=== PATIENT | female | born 1945 | race Caucasian/White ===

== ENCOUNTER 2016-09-21 09:00 | Observation (INO) ==
--- NOTE | 2016-09-21 09:13 | Emergency Department Note ---
Disposition Clinical Impression: COPD exacerbation Disposition: Admitted As Inpatient Condition: Fair Reasons to Return/Additional Instructions: Return to the ED for any new or worsening symptoms. Return to the ED if you have worsening shortness of breath, develop any chest pain, fevers, nausea, vomiting, diarrhea. Take prednisone daily as directed. Follow-up with saw filer and primary care doctor in one to 2 days, call for next available appointment. Referrals: NO,PCP [Non-Partnered Physician] - Forms: ED Satisfaction Letter Time of Disposition: 12:43 SOB HPI - General Chief Complaint: ED Upper Respiratory Infection Stated Complaint: Cough / Congestion / Dexter Time Seen by Provider: 09/21/16 09:12 Source: patient, family Limitations: no limitations Nursing Notes Reviewed: Yes Vital Signs Reviewed: Yes - History of Present Illness Patient is a 71-year-old female with past medical history of COPD, hypothyroidism. She presents today due to shortness of breath. Patient states that she began having cold symptoms about 9 days ago, and then she started having shortness of breath. She has also been having a productive cough that is near baseline for her, white sputum. She called her saw filer, Dr. Osborne, who called in a prescription for Levaquin for 7 days and prednisone to take twice a day. She is unsure of what strength prednisone this was but thinks that it was 20 mg twice a day. She states that she is finished both of these medications, just finished Levaquin today, she had some improvement with these medications but states that she is now worsening again. She denies any chest pain, nausea, vomiting, fevers, diarrhea, abdominal pain. No recent leg swelling, surgeries, not on any estrogen. Current home medications for COPD are Advair, Singulair, and albuterol nebulizer which she reports only using twice daily. - Related Data Home Medications Medication Instructions Recorded Confirmed Albuterol Sulfate [Proair Hfa] 2 puff IH Q4H PRN 09/21/16 09/21/16 Calcium Carb, Citrate/Vit D3 1 tab PO DAILY 09/21/16 09/21/16 [Calcium + D3 ER Tablet] Cholecalciferol (D-3) [Vitamin D] 2,000 unit PO DAILY 09/21/16 09/21/16 Fluticasone Propionate Nasal 50 mcg NS DAILY 09/21/16 09/21/16 [Flonase] Fluticasone/Salmeterol [Advair 1 puff IH BID 09/21/16 09/21/16 250-50 Diskus] Ipratropium/Albuterol Neb [Duoneb] 3 ml IH Q6HR 09/21/16 09/21/16 Levothyroxine [Synthroid] 150 mcg PO DAILY 09/21/16 09/21/16 Montelukast [Singulair] 10 mg PO DAILY 09/21/16 09/21/16 Topiramate [Topamax] 25 mg PO DAILY 09/21/16 09/21/16 Allergies Allergy/AdvReac Type Severity Reaction Status Date / Time Erythromycin Base Allergy Gastrointestinal Verified 09/21/16 12:15 Upset Penicillins Allergy Swelling Verified 09/21/16 12:15 of Lip/Tongue/Throat Constitutional: Denies: fever Eyes: Denies: eye pain ENT ED: Denies: ear pain Cardiovascular: Denies: chest pain Respiratory: Reports: cough, dyspnea, wheezes Gastrointestinal: Denies: abdominal pain, nausea, vomiting, diarrhea, constipation Endocrine: Denies: fatigue Past Medical History - Past Medical History Attestation: Yes The following information was validated with the patient. Medical history: Reports: asthma, COPD, migraine, thyroid disease Psychiatric history: Reports: no psych history PLASTER MACHINE TENDER history: Reports: no PLASTER MACHINE TENDER history - Social History Smoking Status: Never smoker Smokeless Tobacco Status: No Alcohol use: Reports: occasionally Drug use: Reports: none Physical Exam - General Limitations: no limitations General appearance: alert, in no apparent distress - Head Head exam: atraumatic, normocephalic, normal inspection - Eye Eye exam: Present: normal appearance, PERRL, EOMI - ENT ENT exam: normal exam, normal oropharynx, mucous membranes moist - Chest Chest inspection: Present: normal inspection, symmetric chest wall rise - Respiratory Respiratory exam: Present: wheezes (End expiratory wheezes throughout) - Cardiovascular Cardiovascular exam: Present: normal rhythm, tachycardia, normal heart sounds - Abdominal Exam Abdominal exam: Present: soft, Non-Tender. Absent: tenderness, distention, guarding, rebound, rigidity - Extremities Exam Extremities exam: Present: normal inspection, full ROM. Absent: tenderness, pedal edema - Neurological Exam Neurological exam: Present: alert, oriented X3 - Psychiatric Psychiatric exam: Present: normal affect, normal mood - Skin Skin exam: Present: warm, dry, intact, normal color Course Course Narrative: Patient was mildly tachycardic at a heart rate of 100. Oxygen was 95% on room air. The rest of the vitals were within normal limits on my exam. No acute distress. Patient was able to communicate in full sentences without any difficulty, No accessory muscle use. She did have an expiratory wheezes throughout. This is very likely COPD exacerbation. We will obtain chest x-ray, EKG was normal sinus rhythm with no acute ST changes. We will give the patient duo nebs 3 and prednisone 60 mg. The patient improves, we will send home with 60 mg prednisone daily for 5 days, continue taking her home medications Advair, Singulair, albuterol nebulizer every 4-6 hours as needed. We will have her follow up with saw filer in one to 2 days, call for next available appointment. Wells PE positive for only one factor - HR >100, however, history and physical consistent with COPD exacerbation. No concern for PE at this time. 11:15 patient reassess. She is still having wheezing, shortness of breath. Patient was ambulated around the department and oxygen saturation was 87% with just a short walk. She is still symptomatically short of breath. We will admit the patient for hypoxia, COPD exacerbation. Patient was agreeable with this plan. Vital Signs Temperature 99.5 F 09/21/16 09:05 Pulse Rate 101 09/21/16 09:05 Respiratory Rate 18 09/21/16 09:05 Blood Pressure 146/81 09/21/16 09:05 O2 Sat by Pulse Oximetry 95 09/21/16 09:05 Temperature 99.5 F 09/21/16 09:05 Pulse Rate 107 09/21/16 12:10 Respiratory Rate 18 09/21/16 12:10 Blood Pressure 136/104 09/21/16 12:10 O2 Sat by Pulse Oximetry 95 09/21/16 12:10 Oxygen Delivery Oxygen Delivery Room Air Shortness of Breath/Dyspnea - MDM Narrative Medical decision making narrative: Patient was mildly tachycardic at a heart rate of 100. Oxygen was 95% on room air. The rest of the vitals were within normal limits on my exam. No acute distress. Patient was able to communicate in full sentences without any difficulty, No accessory muscle use. She did have an expiratory wheezes throughout. This is very likely COPD exacerbation. We will obtain chest x-ray, EKG was normal sinus rhythm with no acute ST changes. We will give the patient duo nebs 3 and prednisone 60 mg. The patient improves, we will send home with 60 mg prednisone daily for 5 days, continue taking her home medications Advair, Singulair, albuterol nebulizer every 4-6 hours as needed. We will have her follow up with saw filer in one to 2 days, call for next available appointment. Wells PE positive for only one factor - HR >100, however, history and physical consistent with COPD exacerbation. No concern for PE at this time. 11:15 patient reassess. She is still having wheezing, shortness of breath. Patient was ambulated around the department and oxygen saturation was 87% with just a short walk. She is still symptomatically short of breath. We will admit the patient for hypoxia, COPD exacerbation. Patient was agreeable with this plan. - Medical Records Medical records reviewed: Yes I reviewed the patient's medical records. - Lab Data Lab results reviewed: Yes I reviewed the patient's lab results. Result diagrams: 09/21/16 09:28 09/21/16 09:28 Lab Results 09/21/16 09/21/16 Range/Units 09:28 09:28 WBC 6.1 (4.3-11.1) K/mcL RBC 4.92 (3.82-4.97) M/mcL Hgb 15.4 (11.5-15.4) g/dL Hct 47.5 H (35.3-44.9) % MCV 96.5 (83.0-100.0) fL MCH 31.3 (28.0-33.3) pg MCHC 32.4 (31.6-35.5) g/dL RDW 13.1 (11.5-14.5) % Plt Count 347 (140-400) K/mcL MPV 9.3 L (9.4-12.4) fL Immature Gran % 0.7 (0-4) % Seg Neutrophils % 57.2 % Lymphocytes % 24.1 % Monocytes % 16.7 % Eosinophils % 0.5 % Basophils % 0.8 % Neutrophils # 3.5 (1.6-8.9) K/mcL Lymphocytes # 1.5 (0.6-4.6) K/mcL Monocytes # 1.0 (0.0-1.3) K/mcL Eosinophils # 0.0 (0.0-0.6) K/mcL Basophils # 0.1 (0.0-0.2) K/mcL Sodium 138 (136-145) mEq/L Potassium 3.7 (3.5-4.5) mEq/L Chloride 103 (98-109) mEq/L Carbon Dioxide 24 (19-29) mEq/L BUN 15 (7-20) mg/dL Creatinine 0.85 (0.57-1.11) mg/dL Est GFR ( Amer) > 60 (> 60) Est GFR (Non-Af Amer) > 60 (> 60) BUN/Creatinine Ratio 18 (6-26) Glucose 88 (70-99) mg/dL Calculated Osmolality 286 (280-300) Calcium 8.9 (8.6-10.8) mg/dL - Radiology Data Radiology results reviewed: Yes I reviewed the patient's radiology results. - EKG Data EKG attestation: Yes I reviewed and interpreted this EKG. EKG results narrative: 09/21/2016@09:17. Normal sinus rhythm. Rate 96. [place] interval 155. QRS 89. QTc 372. Left axis deviation. No acute ST elevation or depression. S.B.A.Velma. - S.B.AMirian Situation: Demographics, MOA Background: Presenting Complaint, Relevant PMH, Meds, & Allergies Assessment: Vital Signs, Course and respsone to treatment, Exam Concerns, Patient/Family Expectation, Pertinant Lab Results, Outstanding Labs Recommendation: Barrier(s) to disposition, Recommendation based on pending studies, treatments, or consults S.B.A.R. Report Given to: Dr. Yordy Lopez Repor Time: 12:43 Attestation Statement - Attestation Attestation: I examined this patient and my medical decision-making was reviewed with the SLIP COVER SEWER/PA/Advanced Practice Nurse/Resident Physician. I agree with the documented findings, disposition and treatment plan as described except to the extent set forth below. Face to face time provided Patient with a known history of COPD presents to the emergency department with cough, chest congestion, wheezing with only partial relief from her home inhaler. She is able to speak in full sentences on exam. Patient seen and evaluated in conjunction with the resident physician
[2016-09-21] MEDS ORDERED: predniSONE 20 MG TABLET PO ONE (09:32)
[2016-09-21] MEDS ORDERED: Ipratropium/Albuterol Neb 3 ML IH ONE (09:32)
[2016-09-21 11:14] LABS: Basophils # 0.1 K/mcL (0.0-0.2); Basophils % 0.8 %; Eosinophils % 0.5 %; Hematocrit 47.5 % (35.3-44.9); Hemoglobin 15.4 g/dL (11.5-15.4); Immature Granulocytes % 0.7 % (0-4); Lymphocytes # 1.5 K/mcL (0.6-4.6); Lymphocytes % 24.1 %; Mean Corpuscular HGB Conc 32.4 g/dL (31.6-35.5); Mean Corpuscular Hemoglobin 31.3 pg (28.0-33.3); Mean Corpuscular Volume 96.5 fL (83.0-100.0); Mean Platelet Volume 9.3 fL (9.4-12.4); Monocytes % 16.7 %; Neutrophils # 3.5 K/mcL (1.6-8.9); Platelet Count 347 K/mcL (140-400); Red Blood Count 4.92 M/mcL (3.82-4.97); Red Cell Distribution Width 13.1 % (11.5-14.5); Segmented Neutrophils % 57.2 %
[2016-09-21 11:16] LABS: BUN/Creatinine Ratio 18 (6-26); Blood Urea Nitrogen 15 mg/dL (7-20); Calcium 8.9 mg/dL (8.6-10.8); Carbon Dioxide 24 mEq/L (19-29); Chloride 103 mEq/L (98-109); Glucose 88 mg/dL (70-99); Osmolality,Calculated 286 (280-300); Potassium 3.7 mEq/L (3.5-4.5); Sodium 138 mEq/L (136-145); eGFR For African Americans > 60 (> 60); eGFR For Non-African Americans > 60 (> 60)
[2016-09-21] MEDS ORDERED: Albuterol 2.5 MG/3 ML NEBULIZER IH PRN (15:05)
[2016-09-21] MEDS: Ipratropium/Albuterol Neb 3 ML IH SCH ×3 (16:33→23:56)
--- NOTE | 2016-09-21 16:40 | Internal Med History&Physical ---
Date of Encounter: 09/21/16 Time of Encounter: 16:37 Assessment and Plan (1) Hypoxia Current visit: Yes Status: Acute Secondary to COPD exacerbation. She desaturated easily with ambulation to 87% on room air. We will provide supplemental oxygen by nasal cannula to maintain saturation above 92%. We will check home oxygen qualification prior to discharge. (2) Hypothyroidism Current visit: Yes Status: Acute Continue levothyroxine. Qualifiers: Hypothyroidism type: unspecified Qualified Code(s): E03.9 - Hypothyroidism , unspecified (3) COPD exacerbation Current visit: Yes Status: Acute Patient has increasing sputum production and shortness of breath, she desaturates with minimal ambulation which is not her norm. We will treat her with IV steroids, inhaled albuterol and Atrovent. Restart Levaquin 500 mg for a total of 7 more days. We will plan to transition to oral steroids and discharge her when a taper starting at 60 mg daily and slowly tapering it down to 10 mg daily. (4) DVT prophylaxis Current visit: Yes Status: Acute Encourage early ambulation. She does not require pharmacological prophylaxis per risk assessment score. Internal Medicine - H&P: HPI Chief complaint: Chest congestion Admitted From: Emergency Dept Plans for Post Hospital Care: Home History of present illness: Ms. Cramer is a 71 year old female with past medical history of COPD and hypothyroidism, not on home oxygen who presented to the hospital for cough and congestion. She has had a productive cough with shortness of breath and congestion for the last 9 days for which she received outpatient treatment from her superintendent maintenance airports with prednisone and 5 days of Levaquin. She just finished a course of prednisone and started becoming more short of breath with increasing cough and congestion and wheezing. Her symptoms were severe today and she decided to come to the hospital. She denies associated chest pain fevers chills nausea vomiting diarrhea. In the emergency department she was given prednisone and triple nebulized bronchodilators which improved her symptoms however she remained short of breath and her oxygenation saturation dropped to 87% with minimal ambulation. She was referred for admission. Review of systems: Pertinent positives as above, additionally positive for vision loss and chronic back pain otherwise a 10 point review of systems was performed and found to be negative. Family history positive for coronary artery disease in the patient's father. Past Med Surg Social Fam HX - Past Medical History Medical history: arthritis, asthma, COPD, migraine, thyroid disease Psychiatric history: no psych history - Social History Smoking Status: Former smoker Smokeless Tobacco Status: No Alcohol use: occasionally Drug use: none - Family History Mother History Unknown: Yes Living Status: Father Living Status: Age at : 55 Hx Family Cardiac Disorders: Yes Internal Medicine - H&P: Meds Albuterol Sulfate [Proair Hfa] 2 puff IH Q4H PRN 09/21/16 [History] Calcium Carb, Citrate/Vit D3 [Calcium + D3 ER Tablet] 1 tab PO DAILY 09/21/16 [ History] Cholecalciferol (D-3) [Vitamin D] 2,000 unit PO DAILY 09/21/16 [History] Fluticasone Propionate Nasal [Flonase] 50 mcg NS DAILY 09/21/16 [History] Fluticasone/Salmeterol [Advair 250-50 Diskus] 1 puff IH BID 09/21/16 [History] Ipratropium/Albuterol Neb [Duoneb] 3 ml IH Q6HR 09/21/16 [History] Levothyroxine [Synthroid] 150 mcg PO DAILY 09/21/16 [History] Montelukast [Singulair] 10 mg PO DAILY 09/21/16 [History] Topiramate [Topamax] 25 mg PO DAILY 09/21/16 [History] Allergies Erythromycin Base Allergy (Verified 09/21/16 12:15) Gastrointestinal Upset patient states was hospitalized for pancreas problems after taking this medication. Penicillins Allergy (Verified 09/21/16 12:15) Swelling of Lip/Tongue/Throat All Systems PM: A 10-system review of systems was performed and is negative for pertinent findings except as documented above in the HPI. - Constitutional Vitals: Temp Pulse Resp BP Pulse Ox 97.4 F L 93 16 121/71 93 L 09/21/16 14:40 09/21/16 14:40 09/21/16 14:40 09/21/16 14:40 09/21/16 14:40 General appearance: Present: A&O X 3 - Eye Eye exam: Present: PERRL, conjuntiva pink, sclera anicteric Pupils: Present: PERRL - Respiratory Respiratory exam: Present: decreased breath sounds, wheezes (Scattered expiratory wheezes). Absent: accessory muscle use, rales, rhonchi - Cardiovascular Cardiovascular exam: Present: RRR, +S1, +S2. Absent: diastolic murmur, gallop, rubs, systolic murmur - GI/Abdominal GI/Abdominal exam: Present: normal bowel sounds, soft, no peritoneal signs. Absent: distended, tenderness - Extremities Exam Extremities exam: Present: warm, radial pulses palpable and symetrical. Absent : calf tenderness, cyanotic, pedal edema - Neurological Exam Neurological exam: Present: oriented X3, no focal deficits. Absent: pronater drift, facial droop, speech deficit - Skin Skin exam: Present: dry, intact Internal Med - H&P Results - Labs CBC & Chem 7: 09/21/16 09:28 09/21/16 09:28
[2016-09-21] MEDS: levoFLOXacin 500 MG TABLET PO SCH (17:27)
[2016-09-21] MEDS ORDERED: MethylPREDNISolone 40 MG/ML VIAL IVP SCH (18:00)
[2016-09-21] MEDS: Budesonide/Formoterol 80/4.5 MDI IH SCH (20:07)
--- NOTE | 2016-09-21 21:05 | Electrocardiograph Report ---
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
[2016-09-21] MEDS: MethylPREDNISolone 40 MG/ML VIAL IVP SCH (23:46)
[2016-09-22] MEDS: Ipratropium/Albuterol Neb 3 ML IH SCH ×6 (04:33→23:16)
[2016-09-22 05:26] LABS: Basophils % 0.4 %; Hematocrit 47.9 % (35.3-44.9); Hemoglobin 15.6 g/dL (11.5-15.4); Immature Granulocytes % 0.9 % (0-4); Lymphocytes # 0.7 K/mcL (0.6-4.6); Lymphocytes % 11.7 %; Mean Corpuscular HGB Conc 32.6 g/dL (31.6-35.5); Mean Corpuscular Hemoglobin 31.1 pg (28.0-33.3); Mean Corpuscular Volume 95.4 fL (83.0-100.0); Mean Platelet Volume 9.2 fL (9.4-12.4); Monocytes # 0.3 K/mcL (0.0-1.3); Neutrophils # 4.5 K/mcL (1.6-8.9); Platelet Count 346 K/mcL (140-400); Red Blood Count 5.02 M/mcL (3.82-4.97); Red Cell Distribution Width 12.8 % (11.5-14.5)
[2016-09-22 05:39] LABS: BUN/Creatinine Ratio 19 (6-26); Blood Urea Nitrogen 17 mg/dL (7-20); Calcium 9.4 mg/dL (8.6-10.8); Carbon Dioxide 23 mEq/L (19-29); Chloride 105 mEq/L (98-109); Glucose 127 mg/dL (70-99); Magnesium 2.2 mg/dL (1.6-2.6); Osmolality,Calculated 293 (280-300); Potassium 3.9 mEq/L (3.5-4.5); Sodium 140 mEq/L (136-145); eGFR For African Americans > 60 (> 60); eGFR For Non-African Americans > 60 (> 60)
[2016-09-22] MEDS: Budesonide/Formoterol 80/4.5 MDI IH SCH ×2 (07:39→20:04)
[2016-09-22] MEDS: Fluticasone Propionate Nasal 50 MCG/SPRAY BOTTLE NS SCH (10:06)
[2016-09-22] MEDS: Topiramate 25 MG TABLET PO SCH (10:06)
[2016-09-22] MEDS: MethylPREDNISolone 40 MG/ML VIAL IVP SCH ×2 (10:06→16:30)
[2016-09-22] MEDS: levoFLOXacin 500 MG TABLET PO SCH (10:06)
--- NOTE | 2016-09-22 16:47 | Internal Med Progress Note ---
Date of Encounter: 09/21/16 Time of Encounter: 09:30 - Assessment and plan (1) COPD exacerbation Current Visit: Yes Status: Acute Assessment and plan: Patient failed outpatient therapy with Levaquin for 7 days and prednisone twice a day for 5 days. She presented to the emergency room last night with worsening condition and baseline cough. She states that she could not get a good breath. She is requiring oxygen at this time. Her lungs are diminished throughout posteriorly, the expiratory wheezing heard anteriorly. DuoNeb Albuterol treatments. IV Solu-Medrol Levaquin 500 mg by mouth 7 days We will start to transition to oral steroids. (2) Hypoxia Current Visit: Yes Status: Acute Assessment and plan: Patient is requiring oxygen to maintain her sats above 92%. she desats easily on room air down to 87 or 88%. She does not have O2 at home. Continuous pulse ox plan as above (3) Hypothyroidism Current Visit: Yes Status: Chronic Assessment and plan: Chronic. continue home medication. Qualifiers: Hypothyroidism type: unspecified Qualified Code(s): E03.9 - Hypothyroidism , unspecified (4) DVT prophylaxis Current Visit: Yes Status: Acute Assessment and plan: Patient and is unable to ambulate due to shortness of breath and hypoxia, will use antiembolic stockings. - Time Spent With Patient less than 15 minutes - Subjective Interval history: Patient reports vomiting or 10 days of URI symptoms and shortness of breath. She normally has a productive cough with white sputum which remains at baseline. She denies fevers but says that she has been warm. Her internet architect , Dr. Cristobal, gave her Levaquin for 7 days and prednisone twice a day for 5 days. She did not get better. She denies increased use of her inhalers. She denies chest pain nausea vomiting diarrhea or abdominal pain. She does not have peripheral edema. She does not wear oxygen at home. She reports unable to ambulate in her room without her sats dropping to 88% on room air. The nurses attempt to ambulate her again this afternoon and she was tachycardic at 125 and again sats dropped to 88%. - Constitutional Vitals: Temp Pulse Resp BP Pulse Ox 98.1 F 100 16 124/75 93 L 09/22/16 15:23 09/22/16 15:23 09/22/16 15:28 09/22/16 15:23 09/22/16 15:28 General appearance: Present: cooperative, A&O X 3, pleasant, no acute distress, answers questions appropriately - Head Head exam: Present: normal inspection - Eye Eye exam: Present: normal appearance, conjuntiva pink - ENT ENT exam: Present: mucous membranes moist, normal exam - Neck Neck exam general surgery: Present: normal inspection. Absent: lymphadenopathy , tenderness - Respiratory Respiratory exam: Present: decreased breath sounds, wheezes. Absent: rales, respiratory distress, rhonchi, stridor, tachypnea - Cardiovascular Cardiovascular exam: Present: RRR, +S1, +S2, tachycardia - Neurological Exam Neurological exam: Present: alert, oriented X3, strengths equal and symetr throughout Internal Medicine: Result - Labs CBC & Chem 7: 09/22/16 04:30 09/22/16 04:30 Labs: Short CBC 09/22/16 Range/Units 04:30 WBC 5.5 (4.3-11.1) K/mcL Hgb 15.6 H (11.5-15.4) g/dL Hct 47.9 H (35.3-44.9) % Plt Count 346 (140-400) K/mcL Neutrophils # 4.5 (1.6-8.9) K/mcL BMP 09/22/16 04:30 Sodium 140 Potassium 3.9 Chloride 105 Carbon Dioxide 23 BUN 17 Creatinine 0.89 Glucose 127 H Calcium 9.4 Consult Discharge Plan - Plan Referrals: Deyvi Branham Jr, MD [Primary Care Provider] -
[2016-09-23] MEDS: Ipratropium/Albuterol Neb 3 ML IH SCH ×4 (04:00→15:45)
[2016-09-23 06:01] LABS: Basophils % 0.1 %; Hematocrit 42.4 % (35.3-44.9); Hemoglobin 14.2 g/dL (11.5-15.4); Immature Granulocytes % 0.6 % (0-4); Lymphocytes # 1.5 K/mcL (0.6-4.6); Lymphocytes % 18.4 %; Mean Corpuscular HGB Conc 33.5 g/dL (31.6-35.5); Mean Corpuscular Hemoglobin 31.9 pg (28.0-33.3); Mean Corpuscular Volume 95.3 fL (83.0-100.0); Mean Platelet Volume 9.4 fL (9.4-12.4); Monocytes # 0.8 K/mcL (0.0-1.3); Neutrophils # 5.6 K/mcL (1.6-8.9); Platelet Count 329 K/mcL (140-400); Red Blood Count 4.45 M/mcL (3.82-4.97); Red Cell Distribution Width 12.7 % (11.5-14.5); Segmented Neutrophils % 70.9 %
[2016-09-23 06:16] LABS: BUN/Creatinine Ratio 19 (6-26); Blood Urea Nitrogen 16 mg/dL (7-20); Carbon Dioxide 21 mEq/L (19-29); Chloride 106 mEq/L (98-109); Glucose 104 mg/dL (70-99); Osmolality,Calculated 285 (280-300); Potassium 3.8 mEq/L (3.5-4.5); Sodium 137 mEq/L (136-145); eGFR For African Americans > 60 (> 60); eGFR For Non-African Americans > 60 (> 60)
[2016-09-23] MEDS: Budesonide/Formoterol 80/4.5 MDI IH SCH (07:53)
[2016-09-23] MEDS ORDERED: predniSONE 20 MG TABLET PO SCH (09:00)
[2016-09-23] MEDS: Topiramate 25 MG TABLET PO SCH (09:48)
[2016-09-23] MEDS: levoFLOXacin 500 MG TABLET PO SCH (09:48)
[2016-09-23] MEDS: Fluticasone Propionate Nasal 50 MCG/SPRAY BOTTLE NS SCH (09:48)
[2016-09-23 15:12] VITALS: BP 137/78
--- NOTE | 2016-09-23 16:47 | Discharge Summary ---
Date of Encounter: 09/23/16 Time of Encounter: 10:40 - Discharge Diagnosis (1) COPD exacerbation Priority: Primary Status: Chronic Comments: Patient has drastically improved from yesterday. She is no longer requiring supplemental oxygen to maintain her saturation. Her lungs are diminished with faint expiratory wheezing in bilateral bases. She has no leukocytosis, and no fever. Today she reports a dry cough. Patient did a second 6 minute walk today with a 1 minute nora her sat was at the lowest 89%. On room air for the remainder of the time she stayed between 90 and 92%. Chest x-ray was negative for any acute cardiopulmonary process. She says that she feels better today and is breathing easier and is ready to go home. I will send her home on a prednisone taper. (2) Hypoxia Priority: Secondary Status: Acute Comments: Patient is no longer requiring supplemental oxygen to maintain her room air saturation. Patient did a 6 minute walk again today in maintain sats between 89 -92%. At the 2 minute and 6 minute nora she maintained her sats on room air between 90 and 92. The cyst does not qualify for home oxygen. Had initially been a concern yesterday. Plan as above (3) Hypothyroidism Priority: Secondary Status: Chronic Comments: Chronic. Continue home medication. Qualifiers: Hypothyroidism type: unspecified Qualified Code(s): E03.9 - Hypothyroidism , unspecified (4) DVT prophylaxis Priority: Secondary Status: Acute Comments: Patient has been ambulating in the hallway as well as in her room. She did not require pharmacological prophylaxis. - Discharge Medications Prescriptions: Levofloxacin [Levaquin] 500 mg PO DAILY #5 tablet PredniSONE 10 mg PO DAILY #74 tablet Home Medications: Albuterol Sulfate [Proair Hfa] 2 puff IH Q4H PRN 09/21/16 [History] Calcium Carb, Citrate/Vit D3 [Calcium + D3 ER Tablet] 1 tab PO DAILY 09/21/16 [ History] Cholecalciferol (D-3) [Vitamin D] 2,000 unit PO DAILY 09/21/16 [History] Fluticasone Propionate Nasal [Flonase] 50 mcg NS DAILY 09/21/16 [History] Fluticasone/Salmeterol [Advair 250-50 Diskus] 1 puff IH BID 09/21/16 [History] Ipratropium/Albuterol Neb [Duoneb] 3 ml IH Q6HR 09/21/16 [History] Levothyroxine [Synthroid] 150 mcg PO DAILY 09/21/16 [History] Montelukast [Singulair] 10 mg PO DAILY 09/21/16 [History] Topiramate [Topamax] 25 mg PO DAILY 09/21/16 [History] Levofloxacin [Levaquin] 500 mg PO DAILY #5 tablet 09/23/16 [Rx] PredniSONE 10 mg PO DAILY #74 tablet 09/23/16 [Rx] Allergies/Adverse Reactions: Allergies Erythromycin Base Allergy (Verified 09/21/16 12:15) Gastrointestinal Upset patient states was hospitalized for pancreas problems after taking this medication. Penicillins Allergy (Verified 09/21/16 12:15) Swelling of Lip/Tongue/Throat Procedures/tests Complete & Pending: Procedures Performed prior 72 hours Category Date Time Status ECG 12 lead ECG [ECG] Routine Y 09/21/16 09:17 Completed Date of admission: 09/21/16 12:47 Primary care physician: Deyvi Branham Jr, MD Consults: 09/21/16 15:06 Consult to Occupational Therapy [CONS] Routine Comment: Evaluate, develop and implement POC Consult to Physical Therapy [CONS] Routine Comment: Evaluate, develop and implement POC Discharging clinician: Pao Nicholson Anticipated date of discharge: 09/23/16 - Patient Status Disposition: Home, Self-Care Condition: Good Functional capacity at discharge: independent ambulation Overall status at discharge: patient is back to baseline - Discharge Instructions Follow Up With: Deyvi Branham Jr, MD [Primary Care Provider] - Additional Instructions: Follow up with your family doctor in a week for a follow up appointment Return to ER for any other problems or concerns Take your new prescriptions exactly as written, make sure that you finish both. Resume your other home medications. - Diet and Activity Activity: increase activity as tolerated Diet: advance to your usual diet Hospital course: Ms. Cramer is a 71 year old female with history of hypothyroidism COPD. Patient presents to the emergency department with recent history of productive cough with white sputum and shortness of breath. She had been seen by doctor Osborne and placed on Levaquin and prednisone. After a few days she did not get better and came to the emergency department. Patient improved with prednisone and by mouth Levaquin here in the hospital. She also got nebulizer treatments and for the first part of her admission was hypoxic and required supplemental oxygen to maintain her sats. She did a 6 minute walk yesterday and did not qualify for oxygen. Her sats went to 88%. Today she repeated it since 2088% for 1 minute and then stayed between 90 and 92%. Today her lungs are diminished with faint expiratory wheezing in both bases. Patient reports dry cough today. Patient does have rhonchi noted in upper anterior lung peña, these clear with cough. Patient is going to be sent home with the remainder of her by mouth Levaquin and a prednisone taper. She states that she is ready to go home and is stable for discharge. - Time Spent with Patient Total time spent providing and/or coordinating discharge services: Less than 30 minutes - Constitutional Vitals: Temp Pulse Resp BP Pulse Ox 98.0 F 98 15 137/78 94 09/23/16 15:12 09/23/16 15:12 09/23/16 15:12 09/23/16 15:12 09/23/16 15:12 General appearance: Present: cooperative, A&O X 3, pleasant, no acute distress, answers questions appropriately - ENT ENT exam: Present: mucous membranes moist, normal exam, normal external ear exam , normal oropharynx - Neck Neck exam general surgery: Present: normal inspection. Absent: lymphadenopathy , tenderness - Respiratory Respiratory exam: Present: decreased breath sounds, wheezes. Absent: rales, respiratory distress, rhonchi, stridor Additional comments: Lungs sounds diminished, being expiratory wheezing bilateral bases - Cardiovascular Cardiovascular exam: Present: RRR, +S1, +S2. Absent: diastolic murmur, systolic murmur - Extremities Exam Extremities exam: Present: joint swelling, normal capillary refill, warm, radial pulses palpable and symetrical. Absent: pedal edema, tenderness - Neurological Exam Neurological exam: Present: alert, oriented X3, no focal deficits - VTE Documentation of Mechanical Device: Graduated compression elastic hosiery
== END 2016-09-23 17:51 | disposition home or self-care (01) ==
LOC: 3BNU 09:00 → EMEROO 09:00 → 3BNU 13:25
PROVIDERS: ADMIT Internal Medicine; ATTEND Registered Nurse

== ENCOUNTER 2016-11-22 11:01 | Observation (INO) ==
--- NOTE | 2016-11-22 11:07 | Emergency Department Note ---
Disposition Clinical Impression: Chest pain, Pleural effusion, COPD (chronic obstructive pulmonary disease), Thrombocythemia, Frail elderly, History of pulmonary embolus (PE) Disposition: Admitted As Inpatient Referrals: Deyvi Branham Jr, MD [Primary Care Provider] - General Adult HPI - General Stated complaint: Chest Pain Time Seen by Provider: 11/22/16 11:06 - History of Present Illness HPI Narrative: 71-year-old female reports emergency department complaining of left-sided chest pain. She was recently diagnosed with a saddle embolus and treated at [facility]. The patient states she had a Lam filter placed, bilateral lower extremity DVT were identified. She is currently anticoagulated. There is no history of abdominal pain or bleeding of any sort. There is no history of coughing up blood or syncope. No troubles moving the arms or legs independently, no slurred speech or confusion. No unilateral arm or leg weakness or numbness. The patient has had no trouble walking talking hearing seeing or speaking. There is no history cold blue numb or weak extremities, although she reports some slight tingling in her feet. There is no history of rash or urinary symptoms. The patient has no previous history of coronary artery disease, she has no history of cardiac stents. The patient is not had a stress test for over a decade, she has never had a heart catheterization. - Related Data Home Medications Medication Instructions Recorded Confirmed Albuterol Sulfate [Proair Hfa] 2 puff IH Q4H PRN 09/21/16 11/22/16 Calcium Carb, Citrate/Vit D3 1 tab PO BID 09/21/16 11/22/16 [Calcium + D3 ER Tablet] Cholecalciferol (D-3) [Vitamin D] 2,000 unit PO DAILY 09/21/16 11/22/16 Fluticasone Propionate Nasal 50 mcg NS DAILY PRN 09/21/16 11/22/16 [Flonase] Ipratropium/Albuterol Neb [Duoneb] 3 ml IH Q6HR PRN 09/21/16 11/22/16 Levothyroxine [Synthroid] 150 mcg PO [id number] 09/21/16 11/22/16 Montelukast [Singulair] 10 mg PO QPM 09/21/16 11/22/16 Topiramate [Topamax] 25 mg PO HS 09/21/16 11/22/16 Carvedilol [Coreg] 6.25 mg PO BIDWM 11/06/16 11/22/16 Fluticasone/Salmeterol [Advair 1 each IH BID 11/06/16 11/22/16 500-50 Diskus] Apixaban [Eliquis] 5 mg PO BID 11/22/16 11/22/16 Tiotropium Eek [Spiriva 1 puff IH DAILY 11/22/16 11/22/16 Respimat] Allergies Allergy/AdvReac Type Severity Reaction Status Date / Time Penicillins Allergy SWELLING Verified 11/06/16 13:09 Erythromycin Base AdvReac Gastrointestinal Verified 11/06/16 13:09 Upset All systems ED: reviewed and negative except as stated. Past Medical History - Past Medical History Medical history: Reports: arthritis, asthma, COPD, migraine, thyroid disease Psychiatric history: Reports: no psych history NET MAKER history: Reports: no NET MAKER history - Social History Smoking Status: Former smoker Smokeless Tobacco Status: No Alcohol use: Reports: occasionally Drug use: Reports: none Physical Exam - General Limitations: no limitations General appearance: alert, in no apparent distress - Head Head exam: atraumatic, normocephalic, normal inspection - Eye Eye exam: Present: normal appearance, PERRL, EOMI - ENT ENT exam: normal exam, normal oropharynx, mucous membranes moist, TM's normal bilaterally, normal external ear exam - Neck Neck exam: Present: normal inspection, full ROM, trachea midline. Absent: tenderness - Chest Chest inspection: Present: symmetric chest wall rise. Absent: tenderness - Respiratory Respiratory exam: Present: normal lung sounds bilaterally. Absent: respiratory distress, wheezes, stridor, accessory muscle use, prolonged expiratory phase - Cardiovascular Cardiovascular exam: Present: regular rate, normal rhythm - Abdominal Exam Abdominal exam: Present: soft, Non-Tender, normal bowel sounds. Absent: tenderness, distention, guarding, rebound, rigidity - Extremities Exam Extremities exam: Present: normal inspection, full ROM, normal capillary refill. Absent: tenderness, pedal edema, joint swelling, calf tenderness - Expanded Lower Extremity Exam Lower leg exam: Absent: Homans' sign Neurovascular/Tendon exam: Present: normal capillary refill. Absent: motor deficit, sensory deficit, tendon deficit, extremity cold to touch, pallor - Back Exam Back exam: Present: normal inspection, full ROM. Absent: tenderness, CVA tenderness (R), CVA tenderness (L), vertebral tenderness - Neurological Exam Neurological exam: Present: alert, oriented X3, CN II-XII intact. Absent: motor sensory deficit - Psychiatric Psychiatric exam: Present: normal affect, normal mood - Skin Skin exam: Present: warm, dry, intact, normal color. Absent: rash, cyanosis, diaphoresis, erythema, pallor, mottled Course Vital Signs Temperature 98 F 11/22/16 11:22 Pulse Rate 102 11/22/16 11:22 Respiratory Rate 18 11/22/16 11:22 Blood Pressure 175/93 11/22/16 11:22 O2 Sat by Pulse Oximetry 100 11/22/16 11:22 Temperature 98 F 11/22/16 11:22 Pulse Rate 90 11/22/16 12:37 Respiratory Rate 18 11/22/16 12:37 Blood Pressure 153/85 11/22/16 12:37 O2 Sat by Pulse Oximetry 100 11/22/16 12:37 Oxygen Delivery Oxygen Delivery Room Air Medical Decision Making - MDM Narrative Medical decision making narrative: The patient is experiencing chest pain on the left side, she is elderly, was recently diagnosed with saddle embolus and treated, has an apparent pleural effusion on chest x-ray, and has had no previous coronary testing. The patient does not usually have chest pain, when she was being evaluated for pulmonary embolus all she had was shortness of breath and did not have chest pain. Based on her age, new onset chest pain, comorbidities including COPD and recent PE with abnormalities on chest x-ray, I thought it would be appropriate to admit the patient to the hospital. The patient was given aspirin in the ED. She did seem somewhat anxious, Ativan was also given. I discussed the case with the hospitalist on-call who has accepted the patient to their care. The patient is currently stable pending admission. - Lab Data Lab results reviewed: Yes I reviewed the patient's lab results. Result diagrams: 11/22/16 11:39 11/22/16 11:39 Lab Results 11/22/16 11/22/16 11/22/16 Range/Units 11:39 11:39 11:39 WBC (4.3-11.1) K/mcL RBC (3.82-4.97) M/mcL Hgb (11.5-15.4) g/dL Hct (35.3-44.9) % MCV (83.0-100.0) fL MCH (28.0-33.3) pg MCHC (31.6-35.5) g/dL RDW (11.5-14.5) % Plt Count (140-400) K/mcL MPV (9.4-12.4) fL Immature Gran % (0-4) % Seg Neutrophils % % Lymphocytes % % Monocytes % % Eosinophils % % Basophils % % Neutrophils # (1.6-8.9) K/mcL Lymphocytes # (0.6-4.6) K/mcL Monocytes # (0.0-1.3) K/mcL Eosinophils # (0.0-0.6) K/mcL Basophils # (0.0-0.2) K/mcL PT 13.2 H (9.4-12.1) Seconds INR 1.2 APTT 30.0 (26.0-36.0) Seconds Sodium (136-145) mEq/L Potassium (3.5-4.5) mEq/L Chloride (98-109) mEq/L Carbon Dioxide (19-29) mEq/L BUN (7-20) mg/dL Creatinine (0.57-1.11) mg/dL Est GFR ( Amer) (> 60) Est GFR (Non-Af Amer) (> 60) BUN/Creatinine Ratio (6-26) Glucose (70-99) mg/dL Calculated Osmolality (280-300) Lactic Acid (0.5-2.2) mmol/L Calcium (8.6-10.8) mg/dL Total Bilirubin 0.8 (0.2-1.2) mg/dL Direct Bilirubin 0.3 (0.0-0.5) mg/dL Indirect Bilirubin 0.5 (0.0-1.2) mg/dL AST 25 (5-34) Units/L ALT 21 (0-55) Units/L Alkaline Phosphatase 70 (38-126) Units/L Troponin I (0-0.03) ng/mL C-Reactive Protein (Less than 5) mg/L B-Natriuretic Peptide 71 (0-100) pg/mL Serum Total Protein 7.1 (6.0-8.3) g/dL Albumin 4.0 (3.5-5.0) g/dL Globulin 3.1 (2.4-3.5) g/dL Albumin/Globulin Ratio 1.3 (1.1-2.2) Lipase 29 (8-78) Units/L 11/22/16 11/22/16 11/22/16 Range/Units 11:39 11:39 11:39 WBC 7.9 (4.3-11.1) K/mcL RBC 4.69 (3.82-4.97) M/mcL Hgb 14.0 (11.5-15.4) g/dL Hct 45.1 H (35.3-44.9) % MCV 96.2 (83.0-100.0) fL MCH 29.9 (28.0-33.3) pg MCHC 31.0 L (31.6-35.5) g/dL RDW 14.2 (11.5-14.5) % Plt Count 543 H (140-400) K/mcL MPV 8.8 L (9.4-12.4) fL Immature Gran % 0.6 (0-4) % Seg Neutrophils % 65.7 % Lymphocytes % 21.5 % Monocytes % 8.1 % Eosinophils % 3.3 % Basophils % 0.8 % Neutrophils # 5.2 (1.6-8.9) K/mcL Lymphocytes # 1.7 (0.6-4.6) K/mcL Monocytes # 0.6 (0.0-1.3) K/mcL Eosinophils # 0.3 (0.0-0.6) K/mcL Basophils # 0.1 (0.0-0.2) K/mcL PT (9.4-12.1) Seconds INR APTT (26.0-36.0) Seconds Sodium 140 (136-145) mEq/L Potassium 3.7 (3.5-4.5) mEq/L Chloride 105 (98-109) mEq/L Carbon Dioxide 25 (19-29) mEq/L BUN 8 (7-20) mg/dL Creatinine 0.79 (0.57-1.11) mg/dL Est GFR ( Amer) > 60 (> 60) Est GFR (Non-Af Amer) > 60 (> 60) BUN/Creatinine Ratio 10 (6-26) Glucose 99 (70-99) mg/dL Calculated Osmolality 288 (280-300) Lactic Acid (0.5-2.2) mmol/L Calcium 9.7 (8.6-10.8) mg/dL Total Bilirubin (0.2-1.2) mg/dL Direct Bilirubin (0.0-0.5) mg/dL Indirect Bilirubin (0.0-1.2) mg/dL AST (5-34) Units/L ALT (0-55) Units/L Alkaline Phosphatase (38-126) Units/L Troponin I 0.00 (0-0.03) ng/mL C-Reactive Protein (Less than 5) mg/L B-Natriuretic Peptide (0-100) pg/mL Serum Total Protein (6.0-8.3) g/dL Albumin (3.5-5.0) g/dL Globulin (2.4-3.5) g/dL Albumin/Globulin Ratio (1.1-2.2) Lipase (8-78) Units/L 11/22/16 11/22/16 Range/Units 11:39 11:39 WBC (4.3-11.1) K/mcL RBC (3.82-4.97) M/mcL Hgb (11.5-15.4) g/dL Hct (35.3-44.9) % MCV (83.0-100.0) fL MCH (28.0-33.3) pg MCHC (31.6-35.5) g/dL RDW (11.5-14.5) % Plt Count (140-400) K/mcL MPV (9.4-12.4) fL Immature Gran % (0-4) % Seg Neutrophils % % Lymphocytes % % Monocytes % % Eosinophils % % Basophils % % Neutrophils # (1.6-8.9) K/mcL Lymphocytes # (0.6-4.6) K/mcL Monocytes # (0.0-1.3) K/mcL Eosinophils # (0.0-0.6) K/mcL Basophils # (0.0-0.2) K/mcL PT (9.4-12.1) Seconds INR APTT (26.0-36.0) Seconds Sodium (136-145) mEq/L Potassium (3.5-4.5) mEq/L Chloride (98-109) mEq/L Carbon Dioxide (19-29) mEq/L BUN (7-20) mg/dL Creatinine (0.57-1.11) mg/dL Est GFR ( Amer) (> 60) Est GFR (Non-Af Amer) (> 60) BUN/Creatinine Ratio (6-26) Glucose (70-99) mg/dL Calculated Osmolality (280-300) Lactic Acid 1.3 (0.5-2.2) mmol/L Calcium (8.6-10.8) mg/dL Total Bilirubin (0.2-1.2) mg/dL Direct Bilirubin (0.0-0.5) mg/dL Indirect Bilirubin (0.0-1.2) mg/dL AST (5-34) Units/L ALT (0-55) Units/L Alkaline Phosphatase (38-126) Units/L Troponin I (0-0.03) ng/mL C-Reactive Protein 2 (Less than 5) mg/L B-Natriuretic Peptide (0-100) pg/mL Serum Total Protein (6.0-8.3) g/dL Albumin (3.5-5.0) g/dL Globulin (2.4-3.5) g/dL Albumin/Globulin Ratio (1.1-2.2) Lipase (8-78) Units/L - Radiology Data Radiology results reviewed: Yes I reviewed the patient's radiology results.
[2016-11-22 11:49] LABS: Basophils # 0.1 K/mcL (0.0-0.2); Basophils % 0.8 %; Eosinophils # 0.3 K/mcL (0.0-0.6); Eosinophils % 3.3 %; Hematocrit 45.1 % (35.3-44.9); Immature Granulocytes % 0.6 % (0-4); Lymphocytes # 1.7 K/mcL (0.6-4.6); Lymphocytes % 21.5 %; Mean Corpuscular Hemoglobin 29.9 pg (28.0-33.3); Mean Corpuscular Volume 96.2 fL (83.0-100.0); Mean Platelet Volume 8.8 fL (9.4-12.4); Monocytes # 0.6 K/mcL (0.0-1.3); Monocytes % 8.1 %; Neutrophils # 5.2 K/mcL (1.6-8.9); Platelet Count 543 K/mcL (140-400); Red Blood Count 4.69 M/mcL (3.82-4.97); Red Cell Distribution Width 14.2 % (11.5-14.5); Segmented Neutrophils % 65.7 %
[2016-11-22 11:53] LABS: INR 1.2; Prothrombin Time 13.2 Seconds (9.4-12.1)
[2016-11-22 12:04] LABS: BUN/Creatinine Ratio 10 (6-26); Blood Urea Nitrogen 8 mg/dL (7-20); Calcium 9.7 mg/dL (8.6-10.8); Carbon Dioxide 25 mEq/L (19-29); Chloride 105 mEq/L (98-109); Glucose 99 mg/dL (70-99); Osmolality,Calculated 288 (280-300); Potassium 3.7 mEq/L (3.5-4.5); Sodium 140 mEq/L (136-145); eGFR For African Americans > 60 (> 60); eGFR For Non-African Americans > 60 (> 60)
[2016-11-22 12:06] LABS: Albumin/Globulin Ratio 1.3 (1.1-2.2); Bilirubin,Direct 0.3 mg/dL (0.0-0.5); Bilirubin,Indirect 0.5 mg/dL (0.0-1.2); Bilirubin,Total 0.8 mg/dL (0.2-1.2); Globulin 3.1 g/dL (2.4-3.5); Total Protein 7.1 g/dL (6.0-8.3)
[2016-11-22] MEDS ORDERED: *HR* LORazepam 2 MG/ML VIAL IVP ONE (12:10)
[2016-11-22] MEDS ORDERED: Aspirin 325 MG TABLET PO ONE (12:10)
[2016-11-22] MEDS ORDERED: Naloxone 0.4 MG/ML INJ IVP PRN (17:27)
[2016-11-22] MEDS ORDERED: Acetaminophen 325 MG TABLET PO PRN (17:27)
[2016-11-22] MEDS ORDERED: Ipratropium/Albuterol Neb 3 ML IH PRN (17:36)
[2016-11-22] MEDS ORDERED: Fluticasone Propionate Nasal 50 MCG/SPRAY BOTTLE NS PRN (17:36)
--- NOTE | 2016-11-22 17:39 | Internal Med History&Physical ---
Date of Encounter: 11/22/16 Time of Encounter: 17:39 Assessment and Plan (1) Chest pain Current visit: Yes Status: Acute 1 patient has been experiencing chest pain on rest radiating to left arm. She is recent diagnosis and treatment of the saddle embolus she has been compliant with her medications states she has no past cardiac history previous smoker. First cardiac troponin is negative we will continue to cycle cardiac troponin 2 obtain cardiac echo 3 we will obtain lipid profile in a.m. 4 continuous cardiac monitoring 5 continue with aspirin 6 review lab work and diagnostic workup in a.m. 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 Qualifiers: Chest pain type: other chest pain Qualified Code(s): R07.89 - Other chest pain; R07.8 - Other chest pain (2) COPD (chronic obstructive pulmonary disease) Current visit: Yes Status: Acute 1 presently stable with continuous oxygen as needed did not maintain SPO2 greater than 92% 2 bronchodilators as needed Qualifiers: COPD type: unspecified COPD Qualified Code(s): J44.9 - Chronic obstructive pulmonary disease, unspecified (3) History of pulmonary embolus (PE) Current visit: Yes Status: Acute 1 patient will continue with Eliquis BID 2 oxygen as needed 3 patient has a [place] filter bilaterally 4 follow-up with [facility] as outpatient (4) DVT prophylaxis Current visit: No Status: Acute 1 [facility] Internal Medicine - H&P: HPI Chief complaint: cp Admitted From: Emergency Dept Plans for Post Hospital Care: Home History of present illness: Ms. Cramer is a 71 year old female COPD GERD polio hyperthyroid. Patient was recently diagnosed with a saddle embolus and treated at [facility]. She had a [place] filter place bilateral lower extremity DVTs were identified and she was placed on anticoagulation. She was discharged on December 12. Patient states she is doing well however she still felt somewhat weak which she states was to be expected. Last night the patient began to experience left-sided chest heaviness which she described as 8/10 achiness it did radiate to her left arm there were no aggravating factors she did take some Tums as well as drinking an alcoholic beverage hoping to relax her. She states the pain lasted approximately 20 minutes and resolved on its own. According to the patient she did not have any chest pain with her embolus mostly complaining of shortness of breath. She denies any cardiac history who has not had a cardiac workup in the past Patient states today she continued to feel anxious and have tinges of chest pain she presented to the ER above complaints. According to ER records patient was given aspirin as well as some Ativan since she did feel anxious chest x-ray was obtained which did reveal a stable pleural effusion lab work unremarkable strip is 0 she has been admitted for further workup and evaluation. Presently the patient denies any chest pain or shortness of breath she does not appear to be in respiratory distress. Lung sounds are clear throughout heart sounds S1-S2 with no rubs close gallops murmurs noted. Chest is nontender to palpation she does complain of some left- sided neck pain upon movement. Presently she is hemodynamically stable. He is this case with who agrees with plan. Past Med Surg Social Fam HX - Past Medical History Medical history: arthritis, asthma, COPD, migraine, thyroid disease Psychiatric history: no psych history - Social History Smoking Status: Former smoker Smokeless Tobacco Status: No Alcohol use: occasionally Drug use: none - Family History Mother Living Status: Father Living Status: Hx Family Cardiac Disorders: Yes Internal Medicine - H&P: Meds Albuterol Sulfate [Proair Hfa] 2 puff IH Q4H PRN 09/21/16 [History] Calcium Carb, Citrate/Vit D3 [Calcium + D3 ER Tablet] 1 tab PO BID 09/21/16 [ History] Cholecalciferol (D-3) [Vitamin D] 2,000 unit PO DAILY 09/21/16 [History] Fluticasone Propionate Nasal [Flonase] 50 mcg NS DAILY PRN 09/21/16 [History] Ipratropium/Albuterol Neb [Duoneb] 3 ml IH Q6HR PRN 09/21/16 [History] Levothyroxine [Synthroid] 150 mcg PO SUMOTUWEFRSA 09/21/16 [History] Montelukast [Singulair] 10 mg PO QPM 09/21/16 [History] Topiramate [Topamax] 25 mg PO HS 09/21/16 [History] Carvedilol [Coreg] 6.25 mg PO BIDWM 11/06/16 [History] Fluticasone/Salmeterol [Advair 500-50 Diskus] 1 each IH BID 11/06/16 [History] Apixaban [Eliquis] 5 mg PO BID 11/22/16 [History] Tiotropium [place] [Spiriva Respimat] 1 puff IH DAILY 11/22/16 [History] Allergies Penicillins Allergy (Verified 11/06/16 13:09) SWELLING Erythromycin Base Adverse Reaction (Verified 11/06/16 13:09) Gastrointestinal Upset patient states was hospitalized for pancreas problems after taking this medication. All Systems PM: A 10-system review of systems was performed and is negative for pertinent findings except as documented above in the HPI. - Constitutional Constitutional: weakness, no chills, no fever(s), no night sweats - EENT Eyes: no change in vision, no discharge, no pain, no photophobia Ears: no ear discharge, no ear pain, no tinnitus Nose, mouth and throat: no dysphagia, no nasal discharge, no neck pain, no sore throat - Cardiovascular Cardiovascular ROS IM: dyspnea on exertion, no chest pain, no diaphoresis, no dyspnea, no lightheadedness, no palpitations, no syncope - Respiratory Respiratory: no cough, no dyspnea, no wheezing, no excessive phlegm production - Gastrointestinal Gastrointestinal: no abdominal pain, no diarrhea, no hematemesis, no hematochezia, no melena, no nausea, no vomiting - Genitourinary Genitourinary: no change in urinary stream, no dysuria, no flank pain, no hematuria - Musculoskeletal Musculoskeletal ROS IM: no numbness, no tingling - Integumentary Integumentary IM: no rash, no unusual bruising - Neurological Neurological ROS: no confusion, no convulsions, no focal weakness, no numbness, no tingling, no tremor(s) - Hematologic/Lymphatic Hematologic/Lymphatic: no easy bruising - Constitutional Vitals: Temp Pulse Resp BP Pulse Ox 98.5 F 91 16 164/89 95 11/22/16 16:13 11/22/16 16:13 11/22/16 16:13 11/22/16 16:13 11/22/16 17:04 General appearance: Present: A&O X 3, answers questions appropriately - Head Head exam: Present: atraumatic, normocephalic - Eye Eye exam: Present: PERRL, conjuntiva pink, sclera anicteric Pupils: Present: PERRL - Neck Neck exam general surgery: Present: supple, trachea midline. Absent: lymphadenopathy - Respiratory Respiratory exam: Present: CTAB. Absent: accessory muscle use, rales, rhonchi, wheezes - Cardiovascular Cardiovascular exam: Present: RRR, +S1, +S2. Absent: diastolic murmur, gallop, rubs, systolic murmur - GI/Abdominal GI/Abdominal exam: Present: normal bowel sounds, soft, no peritoneal signs. Absent: distended, tenderness - Extremities Exam Extremities exam: Present: warm, radial pulses palpable and symetrical. Absent : calf tenderness, cyanotic, pedal edema - Neurological Exam Neurological exam: Present: CN II-XII intact, oriented X3, no focal deficits. Absent: pronater drift, facial droop, speech deficit - Skin Skin exam: Present: dry, intact Internal Med - H&P Results - Labs CBC & Chem 7: 11/22/16 11:39 11/22/16 11:39 - EKG Data EKG shows normal: sinus rhythm Rate: tachycardia - EKG Data Prior EKG available for review: yes When compared to previous EKG: there is no significant change - Diagnostic Studies Other Images Additional comments: Chest X-Ray 11/22/16 11:28 IMPRESSION: 1. Stable appearance 11/06/2016 of a small right pleural effusion with thickening of the right base pleura, felt to represent developing infarct. Recommend continued follow-up. 2. COPD. 3. Partial visualization of an IVC filter. D/ / 11/22/2016 12:15:20 Lili España MD / keith Interpreting Provider: Lili España MD
--- NOTE | 2016-11-22 19:21 | Electrocardiograph Report ---
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
[2016-11-22] MEDS: Budesonide/Formoterol 160/4.5 MDI IH SCH (20:26)
[2016-11-22] MEDS ORDERED: Topiramate 25 MG TABLET PO SCH (21:00)
[2016-11-22] MEDS: CALCIUM CARBONATE PO SCH (21:20)
[2016-11-22] MEDS: CHOLECALCIFEROL PO SCH (21:20)
[2016-11-22] MEDS: APIXABAN 5 MG TABLET PO SCH (21:21)
[2016-11-23 01:08] LABS: Basophils # 0.1 K/mcL (0.0-0.2); Basophils % 1.1 %; Eosinophils # 0.4 K/mcL (0.0-0.6); Eosinophils % 6.2 %; Hematocrit 37.1 % (35.3-44.9); Immature Granulocytes % 0.5 % (0-4); Lymphocytes # 1.7 K/mcL (0.6-4.6); Lymphocytes % 26.4 %; Mean Corpuscular HGB Conc 32.3 g/dL (31.6-35.5); Mean Corpuscular Hemoglobin 30.9 pg (28.0-33.3); Mean Corpuscular Volume 95.6 fL (83.0-100.0); Mean Platelet Volume 9.2 fL (9.4-12.4); Monocytes # 0.7 K/mcL (0.0-1.3); Monocytes % 11.3 %; Neutrophils # 3.5 K/mcL (1.6-8.9); Platelet Count 431 K/mcL (140-400); Red Blood Count 3.88 M/mcL (3.82-4.97); Red Cell Distribution Width 14.5 % (11.5-14.5); Segmented Neutrophils % 54.5 %
[2016-11-23 01:25] LABS: BUN/Creatinine Ratio 14 (6-26); Blood Urea Nitrogen 11 mg/dL (7-20); Calcium 8.9 mg/dL (8.6-10.8); Carbon Dioxide 25 mEq/L (19-29); Chloride 108 mEq/L (98-109); Chol/HDL Ratio 2.4 (0-4.9); Cholesterol 210 mg/dL (< 200); Glucose 97 mg/dL (70-99); HDL Cholesterol 87 mg/dL (40-59); LDL Cholesterol,Calculated 109 mg/dL (0-99); Osmolality,Calculated 289 (280-300); Potassium 3.7 mEq/L (3.5-4.5); Sodium 140 mEq/L (136-145); Triglycerides 70 mg/dL (< 150); eGFR For African Americans > 60 (> 60); eGFR For Non-African Americans > 60 (> 60)
[2016-11-23] MEDS ORDERED: Perflutren Lipid Microsphere 1.3 ML in 0.9 % Sodium Chloride 8.7 ML IVP ONE (07:42)
[2016-11-23] MEDS ORDERED: TIOTROPIUM BROMIDE IH SCH (09:00)
[2016-11-23] MEDS ORDERED: Cholecalciferol (D-3) 1,000 UNIT TABLET PO SCH (09:00)
[2016-11-23] MEDS: Budesonide/Formoterol 160/4.5 MDI IH SCH (10:57)
[2016-11-23] MEDS: APIXABAN 5 MG TABLET PO SCH (11:39)
[2016-11-23] MEDS: CHOLECALCIFEROL PO SCH (11:48)
[2016-11-23] MEDS: CALCIUM CARBONATE PO SCH (11:48)
[2016-11-23 15:31] VITALS: BP 143/71
--- NOTE | 2016-11-23 15:55 | Electrocardiograph Report ---
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
--- NOTE | 2016-11-23 17:08 | Discharge Summary ---
Date of Encounter: 11/23/16 Time of Encounter: 09:15 (and 1645) - Discharge Diagnosis (1) Chest pain Priority: Primary Status: Resolved Comments: Patient denied chest pain on day of discharge. Chest x-ray unremarkable for acute processes. CT revealing resolving PE. She was on room air during this admission. Echocardiogram unremarkable with ejection fraction of 50% and mild diastolic dysfunction. Patient euvolemic on examination throughout this admission. Qualifiers: Chest pain type: other chest pain Qualified Code(s): R07.89 - Other chest pain; R07.8 - Other chest pain (2) History of pulmonary embolus (PE) Priority: Secondary Status: Chronic Comments: Resolving on imaging. Continue Eliquis. Spoke to pulmonology, follow-up in [address] Griffin (3) Anxiety about health Priority: Primary Status: Acute Comments: Patient was clearly very anxious and states she has been intrusive since she had the clot in her lungs. Patient was anxious to the point where she would become tachycardic and hypertensive, we will initiate anxiety medication and have her follow up outpatient. 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 Continuing her regular home medication of carvedilol follow-up outpatient (5) Hypothyroidism Priority: Secondary Status: Chronic Comments: TSH checked approximately 1 year ago, normal, follow-up outpatient Qualifiers: Hypothyroidism type: unspecified Qualified Code(s): E03.9 - Hypothyroidism , unspecified (6) DVT prophylaxis Priority: Primary Status: Acute Comments: home eliquis resumed while admitted (7) COPD (chronic obstructive pulmonary disease) Priority: Secondary Status: Chronic Comments: No acute exacerbation (8) Thrombocythemia Priority: Secondary Status: Chronic Comments: Chronic over the past couple weeks, trended down during admission, continue anticoagulation therapy and follow up outpatient (9) Pulmonary embolism and infarction Priority: Primary Status: Chronic - Discharge Medications Prescriptions: ALPRAZolam [Xanax 0.25 MG Tablet] 0.25 mg PO BID PRN #14 tablet PRN Reason: Anxiety Omeprazole [PriLOSEC] 20 mg PO DAILY #30 cap Home Medications: Albuterol Sulfate [Proair Hfa] 2 puff IH Q4H PRN 09/21/16 [History] Calcium Carb, Citrate/Vit D3 [Calcium + D3 ER Tablet] 1 tab PO BID 09/21/16 [ History] Cholecalciferol (D-3) [Vitamin D] 2,000 unit PO DAILY 09/21/16 [History] Fluticasone Propionate Nasal [Flonase] 50 mcg NS DAILY PRN 09/21/16 [History] Ipratropium/Albuterol Neb [Duoneb] 3 ml IH Q6HR PRN 09/21/16 [History] Levothyroxine [Synthroid] 150 mcg PO SUMOTUWEFRSA 09/21/16 [History] Montelukast [Singulair] 10 mg PO QPM 09/21/16 [History] Topiramate [Topamax] 25 mg PO HS 09/21/16 [History] Carvedilol [Coreg] 6.25 mg PO BIDWM 11/06/16 [History] Fluticasone/Salmeterol [Advair 500-50 Diskus] 1 each IH BID 11/06/16 [History] Apixaban [Eliquis] 5 mg PO BID 11/22/16 [History] Tiotropium [place] [Spiriva Respimat] 1 puff IH DAILY 11/22/16 [History] ALPRAZolam [Xanax 0.25 MG Tablet] 0.25 mg PO BID PRN #14 tablet 11/23/16 [Rx] Omeprazole [PriLOSEC] 20 mg PO DAILY #30 cap 11/23/16 [Rx] Allergies/Adverse Reactions: Allergies Penicillins Allergy (Verified 11/06/16 13:09) SWELLING Erythromycin Base Adverse Reaction (Verified 11/06/16 13:09) Gastrointestinal Upset patient states was hospitalized for pancreas problems after taking this medication. Procedures/tests Complete & Pending: Procedures Performed prior 72 hours Category Date Time Status CTA chest [CT angio chest] [CT] Stat Cat Scan 11/23/16 14:36 Completed ECG 12 lead ECG [ECG] AM 0600 Y 11/23/16 06:00 Completed EV echocardiogram w enhance Routine Y 11/23/16 17:37 Completed Date of admission: 11/22/16 15:27 Primary care physician: Deyvi Branham Jr, MD Consults: 11/22/16 17:15 Consult to Director Of Development [CONS] Routine Reason for SW Consult: [facility] Discharging clinician: Acacia Kumar Anticipated date of discharge: 11/23/16 - Patient Status Disposition: Home, Self-Care Condition: Good Functional capacity at discharge: independent ambulation Overall status at discharge: patient is back to baseline - Discharge Instructions Follow Up With: Deyvi Branham Jr, MD [Primary Care Provider] - Saskia Griffin MD [Partnered Physician] - Forms: ED Satisfaction Letter Additional Instructions: Follow-up with primary care provider within one to 2 weeks, follow-up with pulmonology within 2-4 weeks - Diet and Activity Activity: increase activity as tolerated Diet: regular diet Hospital course: Ms. Cramer is a 71 year old female with past medical history of COPD, GERD, hypothyroidism. Patient was recently diagnosed with a saddle PE and was transferred to [facility] where she had a [place] filter placed and was started on Eliquis. She was discharged 11/11/16. Patient stating after her discharge that she was doing well however she still felt somewhat weak. On the night prior to presentation, patient began to experience left-sided chest heaviness described as achiness that radiated to her left arm. She denied any aggravating factors. She tried Tums and an alcoholic beverage at home to help her relax and states the pain lasted approximately 20 minutes and resolved on its own. In the emergency department, patient was very anxious and was given IV Ativan. Chest x-ray without acute processes. Patient was admitted to the hospitalist service for further evaluation and management. Patient was noted to be tachycardic and hypertensive and quite anxious. Repeat CTA of the chest revealed a resolving PE as well as progression of her pulmonary infarct of the right lower lobe. Spoke to terminal computer operator Dr. Griffin who cleared her for outpatient follow-up in 2-4 weeks with him. She was on room air during this admission and after she was given anxiety medication, heart rate and blood pressure stabilized. She denied pain or shortness of breath on day of discharge. Echocardiogram was unremarkable with ejection fraction of 50% and mild diastolic dysfunction. Patient was euvolemic on examination during this admission and tolerated a regular diet. Patient also with a persistent cough that is worse in the morning. Symptoms consistent with uncontrolled reflux, started on omeprazole and instructed to follow up outpatient. Also of note, the patient was told by the discharging physician at [facility] to discontinue her beta alejandra however on her discharge paperwork, her beta alejandra was resumed. Her carvedilol was resumed during this admission and she was instructed to follow up outpatient with her primary care provider. She was also discharged with prescription for Xanax as her anxiety was uncontrolled at times during this admission related to fear and her recent blood clot in her lungs. Patient stating that she is now scared stating that she "alomst ." She is discharged home in stable condition with close outpatient follow-up recommended. ITS Impressions Chest X-Ray 11/22/16 11:28 IMPRESSION: 1. Stable appearance 11/06/2016 of a small right pleural effusion with thickening of the right base pleura, felt to represent developing infarct. Recommend continued follow-up. 2. COPD. 3. Partial visualization of an IVC filter. D/ / 11/22/2016 12:15:20 Lili España MD / keith Interpreting Provider: Lili España MD Chest CTA 11/23/16 14:36 IMPRESSION: Near complete resolution of previous extensive pulmonary embolism. Resolution of previous right ventricular strain. Progression of a pulmonary infarct of the right lower lobe. D/ / Jayatn Cerrato MD / Jayant Cerrato MD Interpreting Provider: Jayant Cerrato MD Echo with imaging enhancement agent impressions: Low-normal LV systolic function , LVEF 50%. Mild left ventricular diastolic dysfunction. Normal right ventricular size and function. Mildly dilated left atrium. No significant valvular dysfunction. Evidence of pulmonary hypertension. Calcified atherosclerotic plaque is noted in the aortic arch. - Time Spent with Patient Total time spent providing and/or coordinating discharge services: Greater than 30 minutes (Patient very anxious, medications explained in detail) - Constitutional Vitals: Temp Pulse Resp BP Pulse Ox 98.1 F 69 16 143/71 97 11/23/16 15:30 11/23/16 15:30 11/23/16 15:30 11/23/16 15:30 11/23/16 15:30 General appearance: Present: A&O X 3, pleasant, no acute distress, answers questions appropriately - Head Head exam: Present: atraumatic, normocephalic - Eye Eye exam: Present: PERRL (Legally blind), conjuntiva pink, sclera anicteric Pupils: Present: PERRL - Neck Neck exam general surgery: Present: supple, trachea midline. Absent: lymphadenopathy - Respiratory Respiratory exam: Present: CTAB. Absent: accessory muscle use, rales, respiratory distress, rhonchi, wheezes - Cardiovascular Cardiovascular exam: Present: RRR, +S1, +S2. Absent: diastolic murmur, gallop, rubs, systolic murmur - GI/Abdominal GI/Abdominal exam: Present: normal bowel sounds, soft, no peritoneal signs. Absent: distended, tenderness - Extremities Exam Extremities exam: Present: warm, radial pulses palpable and symetrical. Absent : calf tenderness, cyanotic, pedal edema - Neurological Exam Neurological exam: Present: alert, CN II-XII intact, normal gait, oriented X3, no focal deficits, strengths equal and symetr throughout. Absent: pronater drift, facial droop, speech deficit - Psychiatric Psychiatric exam: Present: anxious - Expanded Psychiatric Exam Focused psych exam: Present: perseverating, restlessness - Skin Skin exam: Present: dry, intact, normal color, warm
== END 2016-11-23 18:15 | disposition home or self-care (01) ==
LOC: 3BNU 11:01 → EMEROO 11:01 → 3BNU 16:04
PROVIDERS: ADMIT Nurse Practitioner Acute Care; ATTEND Nurse Practitioner Family